=== PATIENT | male | born 1990 | race Caucasian/White ===

== ENCOUNTER 2016-09-03 | Emergency (ER) | payer OTHER ==
[~2016-09-03] VITALS: Ht 172.7 cm; Wt 81.6 kg
[2016-09-03 00:23] VITALS: BP 127/79
--- NOTE | 2016-09-03 02:31 | NUR ---
PATIENT LEFT WITHOUT BEING SEEN BY DR. NAVARRO. NO FURTHER CARE PROVIDED FOR PATIENT.
== END 2016-09-03 02:31 | disposition left against medical advice (07) ==
LOC: MED
DX: K08.89 Other specified disorders of teeth and supporting structures (principal); Z53.21 Procedure and treatment not carried out due to patient leaving prior to being seen by health care provider